=== PATIENT | male | born 1985 | race Caucasian/White ===

== ENCOUNTER 2016-08-18 00:54 | Observation (INO) | payer SELFPAY ==
[~2016-08-18] VITALS: Ht 180.3 cm; Wt 68.1 kg
[~2016-08-18 00:54] MED LIST: AMOXICILLIN500 MG PO; ERYTHROMYCIN O3.5 GM OS; LORTAB5 PO
[2016-08-18 01:20] LABS: HEMATOCRIT 44.2 % (39.0-50.0); HEMOGLOBIN 15.7 g/dl (14.0-18.0); IMMATURE GRANULOCYTES 0.6 % (0.0-1.0); MEAN CELL VOLUME 86.8 fL CALC (80.0-100.0); MEAN CORPUSCULAR HGB 30.8 pG CALC (26.0-32.0); MEAN CORPUSCULAR HGB CONC 35.5 g/L CALC (32.0-36.0); NEUT# 15.13 thou/uL (1.82-7.42); RED BLOOD COUNT 5.09 mill/uL (4.70-6.10); RED CELL DISTRI WIDTH 11.9 % (11.5-15.5)
[2016-08-18 01:46] LABS: ALBUMIN 5.2 g/dL (3.2-5.0); ALKALINE PHOSPHATASE 36 u/l (38-126); AMYLASE 70 u/l (30-110); ANION GAP 23 (6-22 (CALC)); BILIRUBIN, TOTAL 0.8 mg/dL (0.0-1.4); BUN 22 mg/dL (9-20); BUN/CREATININE RATIO 6 (12-20 (CALC)); CALCIUM 9.6 mg/dL (8.4-10.2); CARBON DIOXIDE 22 mmol/l (22-30); CHLORIDE 102 mmol/l (95-108); CREATININE 3.6 mg/dL (0.7-1.3); GFR 20 ML/MIN (>=60 (CALC)); GFR FOR AFR.AMER. 24 ML/MIN (>=60 (CALC)); GLUCOSE 178 mg/dL (75-110); LIPASE 38 u/l (23-300); POTASSIUM 4.3 mmol/l (3.5-5.1); SGOT/AST 28 u/l (17-59); SGPT/ALT 36 u/l (21-72); SODIUM 143 mmol/l (137-146); TOTAL PROTEIN 8.5 g/dL (6.3-8.2)
[2016-08-18 01:58] LABS: MYOGLOBIN 262 ng/mL (0 - 121)
[2016-08-18 05:00] VITALS: BP 102/61
[2016-08-18 09:50] VITALS: BP 97/43
[2016-08-18 11:49] LABS: HEMATOCRIT 36.1 % (39.0-50.0); HEMOGLOBIN 12.7 g/dl (14.0-18.0); IMMATURE GRANULOCYTES 0.4 % (0.0-1.0); MEAN CELL VOLUME 87.6 fL CALC (80.0-100.0); MEAN CORPUSCULAR HGB 30.8 pG CALC (26.0-32.0); MEAN CORPUSCULAR HGB CONC 35.2 g/L CALC (32.0-36.0); NEUT# 11.09 thou/uL (1.82-7.42); RED BLOOD COUNT 4.12 mill/uL (4.70-6.10)
[2016-08-18 12:06] LABS: CALCIUM 8.8 mg/dL (8.4-10.2); CREATININE 2.4 mg/dL (0.7-1.3)
[2016-08-18 12:45] VITALS: BP 101/61
[2016-08-18 16:30] VITALS: BP 99/61
== END 2016-08-18 18:27 | disposition left against medical advice (07) | DRG 684 ==
LOC: ED 00:54 → ED-I 03:40 → ED 04:47 → MS2 04:48
PROVIDERS: Emergency Medicine; Internal Medicine; ADMIT Internal Medicine; ATTEND Internal Medicine
DX: N17.9 Acute kidney failure, unspecified (principal); E86.0 Dehydration; T67.5XXA Heat exhaustion, unspecified, initial encounter; X30.XXXA Exposure to excessive natural heat, initial encounter; F17.210 Nicotine dependence, cigarettes, uncomplicated; F12.90 Cannabis use, unspecified, uncomplicated
CPT/HCPCS: G0378

== ENCOUNTER 2019-07-18 20:28 | Emergency (ER) | payer OTHER ==
[2019-07-18] MEDS ORDERED: MOTRIN400 MG/TAB PO (23:48)
[2019-07-19 00:20] VITALS: BP 137/74
== END 2019-07-19 00:20 | disposition home or self-care (01) | DRG 563 ==
LOC: ED 20:28
DX: S43.402A Unspecified sprain of left shoulder joint, initial encounter (principal); M25.561 Pain in right knee; F17.210 Nicotine dependence, cigarettes, uncomplicated; V03.90XA Pedestrian on foot injured in collision with car, pick-up truck or van, unspecified whether traffic or nontraffic accident, initial encounter
CPT/HCPCS: L1830

== ENCOUNTER 2023-10-04 20:36 | Observation (INO) | payer SELFPAY ==
[~2023-10-04] VITALS: Ht 180.3 cm; Wt 68.0 kg
[~2023-10-04 20:36] MED LIST changes: +MOTRIN400 MG/TAB PO; +PROMETHAZINE HY25 M1 PO; +PROTONIX40 M2 PO; +TRAMADOL HYDROC50 M1 PO
[2023-10-04] MEDS ORDERED: ONDANSETRON HCl 4 MG/2 ML SDV IV ONE ×2 (20:45→23:10)
[2023-10-04] MEDS ORDERED: FAMOTIDINE 10MG/ML 2ML SDV IV ONE (20:45)
[2023-10-04] MEDS ORDERED: SODIUM CHLORIDE 0.9% 1,000 ML IV ONE ×5 (20:50→23:10)
[2023-10-04 21:02] LABS: BASO% 0.3 % (0-3); EOS% 0.1 % (0-8); HEMATOCRIT 44.7 % (39.0-50.0); HEMOGLOBIN 15.7 g/dl (14.0-18.0); IMMATURE GRANULOCYTES 0.4 % (0.0-5.0); MEAN CELL VOLUME 88.5 fL CALC (80.0-100.0); MEAN CORPUSCULAR HGB 31.1 pG CALC (26.0-32.0); MEAN CORPUSCULAR HGB CONC 35.1 g/dL CAL (32.0-36.0); MONO% 7.7 % (2-13); NEUT# 17.53 thou/uL (1.82-7.42); NEUT% 85.5 % (42-76); RED BLOOD COUNT 5.05 mill/uL (4.70-6.10); RED CELL DISTRI WIDTH 11.7 % (11.5-15.5)
[2023-10-04 21:15] LABS: ALKALINE PHOSPHATASE 44 u/l (38-126); ANION GAP 21 (6-22 (CALC)); BILIRUBIN, TOTAL 1.1 mg/dL (0.2-1.3); BUN 25 mg/dL (9-20); CARBON DIOXIDE 21 mmol/l (22-30); CHLORIDE 104 mmol/l (95-108); CPK 184 u/l (55-170); ESTIMATED GFR 26 ML/MIN (>=90 (CALC)); LIPASE 38 u/l (23-300); MAGNESIUM 2.2 mg/dL (1.6-2.3); POTASSIUM 4.6 mmol/l (3.5-5.1); SGOT/AST 32 u/l (17-59); SODIUM 141 mmol/l (137-146); TOTAL PROTEIN 9.9 g/dL (6.3-8.2)
[2023-10-04 21:22] LABS: BUN/CREATININE RATIO 8 (12-20 (CALC))
[2023-10-04 21:46] LABS: TSH, 3RD GENERATION 1.97 uIU/mL (0.47 - 4.68)
[2023-10-04] MEDS ORDERED: DICYCLOMINE HCL 10 MG/CAP VT ONE (23:10)
[2023-10-05 00:16] LABS: CPK 149 u/l (55-170)
[2023-10-05 00:18] LABS: ACT PARTIAL THROMBO TIME 23.9 SECONDS (20.0-32.5); INTERNATIONAL NORMALIZED RATIO 1.1 RATIO (0.7-1.3)
[2023-10-05 00:20] LABS: PROTHROMBIN TIME 10.5 SECONDS (9.0-12.5)
[2023-10-05] MEDS ORDERED: LORazepam 2 MG/ML IV ONE (01:35)
[2023-10-05] MEDS ORDERED: METOCLOPRAMIDE HCL 10 MG/2 ML SDV IV ONE (01:35)
[2023-10-05] MEDS ORDERED: SODIUM CHLORIDE 0.9% 500 ML IV SCH (03:45)
[2023-10-05] MEDS ORDERED: FAMOTIDINE 10MG/ML 2ML SDV IV PRN (04:00)
[2023-10-05] MEDS ORDERED: ALUM & MAG HYDROX-SIMETHICONE 30 ML PO PRN (04:00)
[2023-10-05] MEDS ORDERED: ONDANSETRON 4 MG/TAB ODT PO PRN (04:00)
[2023-10-05] MEDS ORDERED: ONDANSETRON HCl 4 MG/2 ML SDV IV PRN ×2 (04:00→10:25)
[2023-10-05] MEDS ORDERED: IBUPROFEN 800 MG/TAB PO PRN (04:00)
[2023-10-05] MEDS ORDERED: SODIUM CHLORIDE 0.45% 1,000 ML IV PRN (04:00)
[2023-10-05] MEDS ORDERED: Polyethylene Glycol 3350 17 GM/PKT PO PRN (04:00)
[2023-10-05 05:14] VITALS: BP 94/53
[2023-10-05 05:15] VITALS: BP 94/53
[2023-10-05 07:13] VITALS: BP 92/43
[2023-10-05] MEDS ORDERED: SODIUM CHLORIDE 0.9% 1,000 ML IV PRN (07:55)
[2023-10-05 08:19] LABS: BASO% 0.2 % (0-3); EOS% 0.1 % (0-8); IMMATURE GRANULOCYTES 0.2 % (0.0-5.0); LYMPH% 10.6 % (15-41); MEAN CORPUSCULAR HGB 31.8 pG CALC (26.0-32.0); MEAN CORPUSCULAR HGB CONC 34.9 g/dL CAL (32.0-36.0); MONO% 10.3 % (2-13); NEUT# 8.85 thou/uL (1.82-7.42); NEUT% 78.6 % (42-76); RED BLOOD COUNT 3.43 mill/uL (4.70-6.10); RED CELL DISTRI WIDTH 12.1 % (11.5-15.5)
[2023-10-05 08:29] LABS: HEMATOCRIT 31.2 % (39.0-50.0); HEMOGLOBIN 10.9 g/dl (14.0-18.0)
[2023-10-05 08:43] LABS: ALBUMIN 3.5 g/dL (3.2-5.0); BILIRUBIN, TOTAL 0.6 mg/dL (0.2-1.3); CREATININE 1.6 mg/dL (0.7-1.3); POTASSIUM 4.3 mmol/l (3.5-5.1); TOTAL PROTEIN 5.8 g/dL (6.3-8.2)
[2023-10-05 11:01] LABS: URINE BILIRUBIN - DIPSTICK Negative (NEGATIVE); URINE BLOOD DIPSTICK Negative (NEGATIVE); URINE GLUCOSE - DIPSTICK Negative (NEGATIVE); URINE KETONE Trace mg/dL (NEGATIVE); URINE LEUK ESTERASE Negative (NEGATIVE); URINE NITRITE - DIPSTICK Negative (Negative); URINE PH 5.5 (4.5-8.0); URINE PROTEIN - DIPSTICK Negative (NEG-TRACE); URINE SPECIFIC GRAVITY 1.025; URINE UROBILINOGEN - DIPSTICK 0.2 E.U./dL (0.2)
[2023-10-05 11:02] LABS: URINE COLOR Yellow
[2023-10-05] MEDS ORDERED: CIPROFLOXACN500 MG PO (14:33)
[2023-10-05] MEDS ORDERED: METRONIDAZOLE500 MG PO (14:34)
[2023-10-05 15:49] VITALS: BP 104/50
[2023-10-06] MEDS ORDERED: ZOFRAN4 MG/TAB PO (14:25)
[2023-10-06] MEDS ORDERED: HALOPERIDOL2 MG PO (14:25)
== END 2023-10-05 16:00 | disposition home or self-care (01) | DRG 684 ==
LOC: ED 20:36 → ED-I 10-05 03:30 → ED 10-05 03:58 → MS2 10-05 03:59
PROVIDERS: Internal Medicine; Nurse Practitioner Family; ADMIT Internal Medicine; ATTEND Internal Medicine
DX: N17.9 Acute kidney failure, unspecified (principal); E86.0 Dehydration; K52.9 Noninfective gastroenteritis and colitis, unspecified; F17.200 Nicotine dependence, unspecified, uncomplicated; X30.XXXA Exposure to excessive natural heat, initial encounter; Y99.0 Civilian activity done for income or pay
CPT/HCPCS: G0378; J2060

== ENCOUNTER 2023-10-06 10:05 | Emergency (ER) | payer SELFPAY ==
[~2023-10-06] VITALS: Ht 180.3 cm; Wt 68.0 kg
[~2023-10-06 10:05] MED LIST changes: +CIPROFLOXACN500 MG PO; +METRONIDAZOLE500 MG PO
[2023-10-06] MEDS ORDERED: ONDANSETRON HCl 4 MG/2 ML SDV IV STA (10:45)
[2023-10-06] MEDS ORDERED: HALOPERIDOL LACTATE 5 MG/ML SDV IV ONE (10:50)
[2023-10-06] MEDS ORDERED: SODIUM CHLORIDE 0.9% 1,000 ML IV ONE (10:50)
[2023-10-06] MEDS ORDERED: PROMETHAZINE HCL 25 MG/ML AMP IM ONE (10:50)
[2023-10-06 11:28] LABS: BASO% 0.4 % (0-3); EOS% 1.6 % (0-8); HEMATOCRIT 32.9 % (39.0-50.0); HEMOGLOBIN 11.3 g/dl (14.0-18.0); IMMATURE GRANULOCYTES 0.1 % (0.0-5.0); LYMPH% 11.5 % (15-41); MEAN CELL VOLUME 92.4 fL CALC (80.0-100.0); MEAN CORPUSCULAR HGB 31.7 pG CALC (26.0-32.0); MEAN CORPUSCULAR HGB CONC 34.3 g/dL CAL (32.0-36.0); MONO% 8.9 % (2-13); NEUT# 10.75 thou/uL (1.82-7.42); NEUT% 77.5 % (42-76); RED BLOOD COUNT 3.56 mill/uL (4.70-6.10); RED CELL DISTRI WIDTH 11.9 % (11.5-15.5)
[2023-10-06 11:31] LABS: CREATININE 1.1 mg/dL (0.7-1.3); POTASSIUM 3.8 mmol/l (3.5-5.1)
[2023-10-06] MEDS ORDERED: SODIUM CHLORIDE 0.9% 1,000 ML IV STA (12:59)
[2023-10-06 13:33] LABS: URINE BILIRUBIN - DIPSTICK Negative (NEGATIVE); URINE BLOOD DIPSTICK Trace-lysed (NEGATIVE); URINE GLUCOSE - DIPSTICK Negative (NEGATIVE); URINE KETONE Negative (NEGATIVE); URINE NITRITE - DIPSTICK Negative (Negative); URINE PH 5.5 (4.5-8.0); URINE PROTEIN - DIPSTICK Negative (NEG-TRACE); URINE SPECIFIC GRAVITY >=1.030; URINE UROBILINOGEN - DIPSTICK 0.2 E.U./dL (0.2)
[2023-10-06 13:44] LABS: URINE COLOR Yellow
[2023-10-06 13:45] LABS: URINE LEUK ESTERASE Small (NEGATIVE)
[2023-10-06 13:49] LABS: URINE BACTERIA FEW hpf; URINE EPITHELIAL CELLS MODERATE EPI/hpf (0-FEW); URINE RBC 0-2 RBC/hpf (0-5)
[2023-10-06] MEDS ORDERED: CIPROFLOXACIN 400 MG IV ONE ×2 (14:15)
[2023-10-06] MEDS ORDERED: ZOFRAN4 MG/TAB PO (14:25)
[2023-10-06] MEDS ORDERED: HALOPERIDOL2 MG PO (14:25)
[2023-10-06 15:29] VITALS: BP 119/77
== END 2023-10-06 15:46 | disposition home or self-care (01) | DRG 387 ==
LOC: ED 10:05
PROVIDERS: Family Medicine
DX: K51.90 Ulcerative colitis, unspecified, without complications (principal); R11.2 Nausea with vomiting, unspecified; F12.90 Cannabis use, unspecified, uncomplicated; T50.916A Underdosing of multiple unspecified drugs, medicaments and biological substances, initial encounter; Z91.128 Patient's intentional underdosing of medication regimen for other reason